=== PATIENT | female | born 1940 | race Caucasian/White ===

== ENCOUNTER 2016-07-01 18:17 | Emergency (ER) | payer SELFPAY ==
[~2016-07-01] VITALS: Ht 149.9 cm; Wt 110.0 kg
[2016-07-01 18:19] VITALS: BP 147/82; PULSE 68; RESP 20; TEMP 97.8; O2SAT 94
== END 2016-07-01 23:31 | disposition left against medical advice (07) ==
LOC: NED 18:17
DX: R19.8 Other specified symptoms and signs involving the digestive system and abdomen (principal)
CPT/HCPCS: 99281